=== PATIENT | female | born 1965 | race Caucasian/White ===

== ENCOUNTER → 2017-02-07 | Outpatient (CLI) | payer BC ==
[2017-02-07 21:52] LABS: Follicle Stimulating Hormone 89.6 mIU/mL
[2017-02-10 09:01] LABS: Mis test requested (Blood) AMH
[2017-02-14 08:11] LABS: Mis test requested (Blood) INHIBIN B
== END ==
LOC: MMGSC 09:39
PROVIDERS: ATTEND Internal Medicine Hematology & Oncology
DX: C50.919 Malignant neoplasm of unspecified site of unspecified female breast (principal); N92.0 Excessive and frequent menstruation with regular cycle; J30.2 Other seasonal allergic rhinitis
CPT/HCPCS: 36415; 82397; 82670; 83001; 83002; 83520

== ENCOUNTER → 2017-02-27 | Outpatient (CLI) | payer BC ==
[2017-02-27 19:57] LABS: Basophils # (A) 0.1 k/uL (0-0.2); Basophils % (A) 1 %; CH 32.4; CHCM 32.5; Eosinophils # (A) 0.4 k/uL (0-0.7); Eosinophils % (A) 9 %; HDW 2.05; HGB 13.9 gm/dL (11.4-16.0); Luc % (Auto) 2; Lymphocytes % (A) 23 %; MCH 32.3 pg (25.0-35.0); MCHC 32.2 g/dL (31.0-37.0); MCV 100.2 fL (80.0-100.0); Mean Platelet Volume 7.6; Monocytes # (A) 0.3 k/uL (0-1.0); Monocytes % (A) 7 %; Neutrophils # (A) 2.6 k/uL (1.3-7.7); Neutrophils % (A) 58 %; RBC 4.29 m/uL (3.80-5.40); RDW 12.3 % (11.5-15.5); WBC 4.6 k/uL (3.8-10.6); WBC (Perox) 4.82
[2017-02-27 23:38] LABS: Erythrocyte Sedimentation Rate 2 mm/hr (0-20)
== END | disposition home or self-care (01) ==
LOC: MMGSC 13:39
PROVIDERS: ATTEND Physical Medicine & Rehabilitation
DX: M50.122 Cervical disc disorder at C5-C6 level with radiculopathy (principal); M50.123 Cervical disc disorder at C6-C7 level with radiculopathy
CPT/HCPCS: 36415; 85025; 85652; 86140

== ENCOUNTER → 2017-07-09 | Outpatient (CLI) | payer BC ==
--- NOTE | 2017-07-09 15:11 | XR ---
Thoracic spine HISTORY: Back pain 3 views of the thoracic spine correlated to chest x-ray 04/15/2012 Mild spinal curvature is present. Thoracic vertebral bodies show preserved height, alignment, and bon e mineralization. There is multilevel spondylosis. Disc spaces relatively maintained. IMPRESSION: Thoracic spondylosis, scoliosis.
--- NOTE | 2017-07-09 15:21 | XR ---
Lumbar spine HISTORY: Back pain 3 views of the lumbar spine There is a sclerotic density present possibly within the right ilium. There is a mild spinal curvatur e. Lumbar vertebral bodies show preserved height and alignment. There is multilevel spondylosis. Some mild loss of disc height and intervertebral levels. Sacralized L5 is suspected. IMPRESSION: Indeterminate sclerotic lesion right ilium, suggest dedicated imaging, possible MRI versu s bone scan, metastatic disease is not excluded. Degenerative disc disease. Mild spinal curvature.
== END | disposition home or self-care (01) ==
LOC: RADXRMAIN 12:00
PROVIDERS: ATTEND Family Medicine
DX: M47.814 Spondylosis without myelopathy or radiculopathy, thoracic region (principal); M41.9 Scoliosis, unspecified; M51.36 Other intervertebral disc degeneration, lumbar region
CPT/HCPCS: 72072; 72100

== ENCOUNTER → 2017-07-09 | Outpatient (CLI) | payer BC | END | disposition home or self-care (01) | LOC: MMGSC 11:02 | PROVIDERS: ATTEND Family Medicine | DX: N39.0 Urinary tract infection, site not specified (principal) | CPT/HCPCS: 87086 ==

== ENCOUNTER → 2020-06-01 | Outpatient (CLI) | payer BC ==
[~2020-06-01] MED LIST: SODIUM CHLORIDE 0.9% 500 ML 500 ML in EMPTY BAG 1 BAG IV PRN; ZOLEDRONIC ACID 4 MG in SODIUM CHLORIDE 0.9% 100 ML IV NR
[2020-06-01 12:31] VITALS: BP 109/72; PULSE 74; RESP 16; TEMP 98.4
== END | disposition home or self-care (01) ==
LOC: PROCWHC3 11:26
PROVIDERS: ATTEND Family Medicine
DX: C50.912 Malignant neoplasm of unspecified site of left female breast (principal)
CPT/HCPCS: 96365; J3489

== ENCOUNTER 2022-03-15 16:59 | Emergency (ER) | payer BC ==
[2022-03-15 17:10] VITALS: RESP 18
[2022-03-15] MEDS ORDERED: ACETAMINOPHEN TAB 500 MG TAB PO STA (17:38)
[2022-03-15] MEDS ORDERED: dexAMETHasone 2 MG TAB PO STA (17:38)
--- NOTE | 2022-03-15 18:01 | ED ---
General Adult HPI - General Chief complaint: Upper Respiratory Infection Stated complaint: Covid + Time Seen by Provider: 03/15/22 17:24 Source: patient, RN notes reviewed, old records reviewed Mode of arrival: ambulatory Limitations: no limitations - History of Present Illness Initial comments: Patient is a 56-year-old female who presents emergency Department complaining of a home positive Covid test. She does have a history of breast cancer currently in remission. He is still on maintenance therapy. Was recommended by her oncologist to come be evaluated at the emergency department. States symptoms started yesterday with a nonproductive cough as well as mild feeling of shortness of breath. Endorses low-grade fevers. Denies nausea or vomiting. Denies diarrhea. Denies chest pain. His no other acute complaints at this time. SHe was vaccinated and boosted against COVID-19. Would like monoclonal antibodies. - Related Data Home Medications Medication Instructions Recorded Confirmed Exemestane [Aromasin] 25 mg PO DAILY 06/01/20 03/15/22 ALPRAZolam [Xanax] 0.5 mg PO DAILY PRN 03/15/22 03/15/22 Previous Rx's Medication Instructions Recorded dexAMETHasone [Decadron] 6 mg PO DAILY 5 Days #5 tab 03/15/22 Allergies Allergy/AdvReac Type Severity Reaction Status Date / Time chicken derived [Chicken] Allergy Unknown Verified 03/15/22 18:20 soy Allergy Unknown Verified 03/15/22 18:20 wheat Allergy Swelling Verified 03/15/22 18:20 Review of Systems ROS Statement: Those systems with pertinent positive or pertinent negative responses have been documented in the HPI. Review of Systems: CONST: Endorses low-grade fever EYES: Denies blurry vision ENT: Endorses nasal congestion C/V: Denies Chest pain RESP: Endorses cough GI: Denies abdominal pain : Denies dysuria SKIN: Denies rash. MSK: Denies joint pain. NEURO: Denies headache ROS Other: All systems not noted in ROS Statement are negative. Past Medical History Past Medical History: Cancer Additional Past Medical History / Comment(s): breast,eosinophilegophasitis History of Any Multi-Drug Resistant Organisms: None Reported Past Surgical History: Hysterectomy Additional Past Surgical History / Comment(s): lumpectomy left breast Past Anesthesia/Blood Transfusion Reactions: No Reported Reaction Past Psychological History: No Psychological Hx Reported Smoking Status: Never smoker Past Alcohol Use History: None Reported Past Drug Use History: None Reported General Exam - General Exam Comments Initial Comments: General: Appears in no acute distress. Low-grade fever. HEAD: Normal with no signs of head trauma. EYES: PERRLA, EOMI, conjunctiva normal, no discharge. ENT: Hearing grossly intact, normal oropharynx. RESPIRATORY: Clear breath sounds bilaterally. No wheezes, rales, or rhonchi. No increased work of breathing. No hypoxia. C/V: Regular rate and rhythm. S1 and S2 auscultated, no edema, peripheral pulses 2+ and intact throughout ABD: Abd is soft, nontender, nondistended EXT: Normal range of motion, no obvious deformity SKIN: No rashes or lesions observed on exposed skin. NEURO: Alert and oriented x 4. Limitations: no limitations Course Vital Signs 03/15/22 03/15/22 17:05 20:30 Temperature 100 F H 99.7 F H Pulse Rate 100 73 Respiratory 18 18 Rate Blood Pressure 124/75 97/63 O2 Sat by Pulse 99 96 Oximetry Medical Decision Making - Medical Decision Making Based on the patient's presentation and physical exam, I'm concerned for Covid infection. Covid test was obtained while she was in triage. I also recommended a chest x-ray due to the cough. She was in agreement this plan. She would like medical antibiotic therapies and consented to treatment. Covid tested return positive. Due to her cough, she will also be prescribed and given a dose of Decadron. For her low-grade fever she'll be given Tylenol. I do not believe that she requires further laboratory studies or imaging at this time. Chest x-ray showed no obvious infiltrates. Patient will be discharged home following monoclonal antibody therapy. I recommended close follow-up with her physician. We discussed quarantine. We discussed obtaining a pulse oximeter. She was in agreement this plan.She'll be observed following monoclonal antibody therapy for a period of 1 hour. She was in agreement this plan. I discussed the patient's laboratory findings and imaging with her. She expresses understanding. Vital signs within normal limits and stable throughout her stay. She is not hypoxic. No respiratory distress. Patient tolerated the treatment well. I will provide the patient with a prescription for Decadron. I instructed the patient to follow up with their PCP in the next 3 days. I explained that the patient should return to the emergency department if they experience any worsening symptoms. Strict return precautions were discussed with the patient. The patient expressed understanding of these instructions. I answered all questions that the patient had. The patient was discharged home in good condition with their prescriptions and follow up information. - Lab Data Lab Results 03/15/22 Range/Units 17:12 Coronavirus (PCR) Detected A (Not Detectd) Disposition Clinical Impression: COVID-19 virus infection Disposition: HOME SELF-CARE Condition: Good Instructions (If sedation given, give patient instructions): COVID-19 (Coronavirus Disease 2019) (ED) Prescriptions: dexAMETHasone [Decadron] 6 mg PO DAILY 5 Days #5 tab Is patient prescribed a controlled substance at d/c from ED?: No Referrals: Bina Dumont MD [Primary Care Provider] - 1-2 days Time of Disposition: 18:00
[2022-03-15] MEDS ORDERED: BEBTELOVIMAB (EUA) 175 MG/2 ML VIAL IV ONE (18:30)
--- NOTE | 2022-03-15 18:33 | XR ---
EXAMINATION TYPE: XR chest 1V portable DATE OF EXAM: 03/15/2022 5:49 PM COMPARISON: None TECHNIQUE: XR chest 1V portable Frontal view of the chest. CLINICAL INDICATION:Female, 56 years old with history of cough; FINDINGS: Lungs/Pleura: There is no evidence of pleural effusion, focal consolidation, or pneumothorax. Pulmonary vascularity: Unremarkable. Heart/mediastinum: Cardiomediastinal silhouette is unremarkable. Musculoskeletal: No acute osseous pathology. IMPRESSION: No acute cardiopulmonary disease/process.
[2022-03-15 20:31] VITALS: BP 97/63; PULSE 73; TEMP 99.7
== END 2022-03-15 20:52 | disposition home or self-care (01) ==
LOC: EC 16:59
DX: U07.1 COVID-19 (principal)
CPT/HCPCS: 87635; 71045; 99284; J8540; Q0222

== ENCOUNTER → 2023-04-30 | Outpatient (CLI) | payer BC ==
[2023-04-30 11:56] LABS: Basophils # (A) 0.05 X 10*3/uL (0.00-0.10); Basophils % (A) 1.1 %; Eosinophils # (A) 0.28 X 10*3/uL (0.04-0.35); Eosinophils % (A) 6.2 %; HCT 43.2 % (37.2-46.3); Immature Grans, Automated 0 %; Lymphocytes # (A) 1.89 X 10*3/uL (0.90-5.00); Lymphocytes % (A) 41.6 %; MCH 32.1 pg (27.0-32.0); MCHC 32.4 d/dL (32.0-37.0); MCV 99.1 FL (80.0-97.0); Monocytes # (A) 0.45 X 10*3/uL (0.20-1.00); Monocytes % (A) 9.9 %; NRBC Per 100 WBC 0 X 10*3/uL (0.00-0.01); Neutrophils # (A) 1.87 X 10*3/uL (1.80-7.70); Neutrophils % (A) 41.2 %; Platelet Count 324 X 10*3/uL (140-440); RBC 4.36 X 10*6/uL (4.10-5.20); RDW 12.3 % (11.5-14.5); WBC 4.54 X 10*3/uL (4.50-10.00)
[2023-04-30 12:26] LABS: ALT 19 U/L (8-44); AST 24 U/L (13-35); Albumin 4.9 d/dL (3.8-4.9); Albumin/Globulin Ratio 2.58 Ratio (1.60-3.17); Alkaline Phosphatase 54 U/L (41-126); BUN/Creat Ratio 12.38 Ratio (12.00-20.00); Blood Urea Nitrogen 9.9 mg/dL (9.0-27.0); Calcium 9.5 mg/dL (8.7-10.3); Carbon Dioxide 28.2 mmol/L (21.6-31.8); Chloride 105 mmol/L (96-109); Chol/HDL Ratio 1.87 Ratio; Globulin 1.9 d/dL (1.6-3.3); Glucose 81 mg/dL (70-110); LDL Cholesterol,Calculated 72.1 mg/dL (0.0-131.0); Potassium 4.3 mmol/L (3.5-5.5); Sodium 143 mmol/L (135-145); Total Bilirubin 0.4 mg/dL (0.3-1.2); Total Protein 6.8 d/dL (6.2-8.2)
== END | disposition home or self-care (01) ==
LOC: LABWHC1 07:26
PROVIDERS: ATTEND Family Medicine
DX: Z00.00 Encounter for general adult medical examination without abnormal findings (principal); K21.9 Gastro-esophageal reflux disease without esophagitis; R53.83 Other fatigue; D64.9 Anemia, unspecified; M85.80 Other specified disorders of bone density and structure, unspecified site
CPT/HCPCS: 36415; 80053; 80061; 82306; 83036; 84443; 85025